=== PATIENT | female | born 1990 | race Two or more races ===

== ENCOUNTER 2021-10-14 18:04 | Emergency (ER) | payer MEDICAID, OTHER ==
[~2021-10-14] VITALS: Ht 167.6 cm; Wt 81.8 kg
[2021-10-14 20:17] LABS: Basophils # (auto) 0.1 10 ^3/uL (0-0.2); Basophils % (auto) 0.5 % (0.0-2.0); Eosinophils # (auto) 0 10 ^3/uL (0-0.8); Eosinophils % (auto) 0.1 % (0.0-7.0); Hematocrit 45.6 % (36.0-46.0); Hemoglobin 15.2 g/dL (12.2-16.2); Lymphocytes # (auto) 3.1 10 ^3/uL (0.4-5.4); Lymphocytes % (auto) 20.4 % (10.0-50.0); Mean Corpuscular Hemoglobin 31.1 pg (28.0-32.0); Mean Corpuscular Hgb Conc. 33.3 g/dL (32.0-36.0); Mean Corpuscular Volume 93.3 fL (80.0-100.0); Monocytes # (auto) 1.7 10 ^3/uL (0-1.3); Monocytes % (auto) 11.1 % (0.0-12.0); Neutrophils # (auto) 10.5 10 ^3/uL (1.6-8.6); Neutrophils % (auto) 67.9 % (37.0-80.0); Nucleated Red Blood Cells % 0.1 %; Red Blood Cells 4.88 10^6/uL (4.0-5.20); Red Cell Distribution Width 14.3 % (11.8-14.3); White Blood Cell 15.4 10^3/uL (4.4-10.8)
[2021-10-14 20:34] LABS: Alanine Aminotransferase 47 U/L (13-56); Albumin 4.4 g/dL (3.4-5.0); Anion Gap 12 (5-15); Aspartate Aminotransferase 35 U/L (15-37); BUN/Creatinine Ratio 19.3; Blood Alcohol < 3.0 mg/dL (0-5); Blood Urea Nitrogen 23 mg/dL (7-18); Calcium 9.3 mg/dL (8.5-10.1); Carbon Dioxide 22 mmol/L (21-32); Chloride 106 mmol/L (98-107); GFR African American 67 mL/min; GFR Non-African American 56 mL/min; Glucose 96 mg/dL (74-106); Potassium 3.3 mmol/L (3.5-5.1); Salicylate 3.4 mg/dL (2.8-20.0); Sodium 140 mmol/L (136-145)
[2021-10-14 20:35] LABS: Acetaminophen < 2.0 ug/mL (10-30)
[2021-10-14 20:36] LABS: Alkaline Phosphatase 100 U/L (45-117); Bilirubin, Total 0.8 mg/dL (0.2-1.0); Total Protein 8.3 g/dL (6.4-8.2)
[2021-10-14 22:43] LABS: Urine Bacteria NONE SEEN /hpf (None Seen); Urine Blood Negative /uL (Negative); Urine Hyaline Cast MOD /lpf (0 - 2); Urine Mucus MODERATE (None Seen); Urine Specific Gravity 1.038 (1.001-1.035); Urine WBC 6 /hpf (0 - 5)
[2021-10-14 22:56] LABS: Amphetamine Screen, Urine POSITIVE (NEGATIVE); Barbiturate Scree,Urine NEGATIVE (NEGATIVE); Benzodiazephine Screen, Urine NEGATIVE (NEGATIVE); Cannabinoid Screen, Urine NEGATIVE (NEGATIVE); Cocaine Screen, Urine NEGATIVE (NEGATIVE); Opiate Scree,Urine NEGATIVE (NEGATIVE); Phencyclidine Screen, Urine NEGATIVE (NEGATIVE)
[2021-10-14] MEDS ORDERED: POTASSIUM CHL 20 Meq TABLET PO ONE (23:15)
[2021-10-15] MEDS ORDERED: LORazepam 0.5 MG TAB PO ONE (17:30)
[2021-10-15] MEDS: risperiDONE 1 MG TAB PO SCH (21:57)
[2021-10-16] MEDS: risperiDONE 1 MG TAB PO SCH ×2 (10:13→22:55)
[2021-10-17] MEDS: risperiDONE 1 MG TAB PO SCH ×2 (09:42→22:52)
[2021-10-18] MEDS ORDERED: risperiDONE 1 MG TAB PO ONE (11:15)
[2021-10-18] MEDS: risperiDONE 1 MG TAB PO SCH ×2 (14:08→22:00)
[2021-10-18] MEDS: levETIRAcetam 500 MG TAB PO SCH (22:00)
[2021-10-18] MEDS: OXcarbazepine 300 MG TAB PO SCH (22:00)
[2021-10-19] MEDS: levETIRAcetam 500 MG TAB PO SCH (11:10)
[2021-10-19] MEDS: risperiDONE 1 MG TAB PO SCH (11:10)
[2021-10-19] MEDS: OXcarbazepine 300 MG TAB PO SCH (11:10)
[2021-10-20] MEDS: levETIRAcetam 500 MG TAB PO SCH ×2 (10:00→11:23)
[2021-10-20] MEDS: risperiDONE 1 MG TAB PO SCH ×2 (10:00→11:23)
[2021-10-20] MEDS: OXcarbazepine 300 MG TAB PO SCH ×2 (10:00→11:23)
[2021-10-21] MEDS: risperiDONE 1 MG TAB PO SCH ×3 (02:50→22:00)
[2021-10-21] MEDS: levETIRAcetam 500 MG TAB PO SCH ×3 (02:50→22:00)
[2021-10-21] MEDS: OXcarbazepine 300 MG TAB PO SCH ×3 (02:51→22:00)
[2021-10-22] MEDS ORDERED: risperiDONE 1 MG TAB ONE ×2 (00:57→23:20)
[2021-10-22] MEDS ORDERED: levETIRAcetam 500 MG TAB ONE (01:01)
[2021-10-22] MEDS ORDERED: OXcarbazepine 300 MG TAB ONE (01:01)
[2021-10-22] MEDS: risperiDONE 1 MG TAB PO SCH ×2 (10:00→23:25)
[2021-10-22] MEDS: levETIRAcetam 500 MG TAB PO SCH ×2 (10:00→23:25)
[2021-10-22] MEDS: OXcarbazepine 300 MG TAB PO SCH ×2 (10:00→23:25)
[2021-10-23] MEDS ORDERED: risperiDONE 1 MG TAB ONE (10:57)
[2021-10-23] MEDS: risperiDONE 1 MG TAB PO SCH (10:58)
[2021-10-23] MEDS: OXcarbazepine 300 MG TAB PO SCH (11:36)
[2021-10-23] MEDS: levETIRAcetam 500 MG TAB PO SCH (11:36)
[2021-10-23] MEDS ORDERED: LEVE500T3 PO (19:01)
[2021-10-23] MEDS ORDERED: RISP0.5T17 PO (19:01)
[2021-10-23] MEDS ORDERED: OXCA600T3 PO (19:01)
[2021-10-23 19:43] VITALS: BP 120/89
== END 2021-10-23 19:45 | disposition home or self-care (01) ==
LOC: EDBD 18:04 → ER 18:10
DX: F29 Unspecified psychosis not due to a substance or known physiological condition (principal); R10.2 Pelvic and perineal pain; Z20.822 Contact with and (suspected) exposure to COVID-19
CPT/HCPCS: 36415; 70450; 71045; 80053; 80307; 80320; 80329; 81001; 84702; 85025